=== PATIENT | male | born 1980 | race Caucasian/White ===

== ENCOUNTER 2016-08-27 16:11 | Emergency (ER) | payer OTHER ==
[~2016-08-27] VITALS: Ht 175.3 cm; Wt 77.1 kg
[2016-08-27] MEDS ORDERED: ADV100INH INH (16:33)
[2016-08-27] MEDS ORDERED: MONT10TA2 PO (16:33)
[2016-08-27] MEDS ORDERED: ALBU17IN INH (16:33)
[2016-08-27] MEDS ORDERED: ADDE30CA PO (16:33)
[2016-08-27] MEDS ORDERED: NORCO, ANEXSIA 5/325MG TABLET (HYDROcodone/ACETAMINOPHEN) PO ONE (17:15)
--- NOTE | 2016-08-27 17:39 | REP ---
Left ankle series: Four views: History: Trauma. Findings: There is mild Achilles calcaneal spurring noted on lateral radiograph. Ankle mortise is intact. No fracture is seen. Some medial and anterior soft tissue swelling is seen. Impression: Soft-tissue swelling. No fracture noted. Signed by Calvin Mendenhall MD 08/27/2016 07:36 P
--- NOTE | 2016-08-27 18:02 | REP ---
Right knee series: Five views. History: Trauma. Findings: Five views of the right knee demonstrate clothing artifact over the distal thigh. Bones, joints, and soft tissues are otherwise radiographically intact. Impression: Clothing artifact. Otherwise negative left knee series. Signed by Calvin Mendenhall MD 08/27/2016 07:37 P
[2016-08-27 18:34] VITALS: BP 139/63
[2016-08-27] MEDS ORDERED: NAPR500T PO (18:35)
== END 2016-08-27 18:48 | disposition home or self-care (01) ==
LOC: M ED 17:42
DX: S93.402A Sprain of unspecified ligament of left ankle, initial encounter (principal); S83.92XA Sprain of unspecified site of left knee, initial encounter; X58.XXXA Exposure to other specified factors, initial encounter; Y92.410 Unspecified street and highway as the place of occurrence of the external cause; Y93.9 Activity, unspecified; Y99.9 Unspecified external cause status; F90.9 Attention-deficit hyperactivity disorder, unspecified type; J45.909 Unspecified asthma, uncomplicated; F17.200 Nicotine dependence, unspecified, uncomplicated; Z79.899 Other long term (current) drug therapy; Z88.0 Allergy status to penicillin; Z91.013 Allergy to seafood

== ENCOUNTER → 2016-08-31 | Outpatient (CLI) | payer OTHER ==
[~2016-08-31] MED LIST: ADDE30CA PO; ADV100INH INH; ALBU17IN INH; MONT10TA2 PO; NAPR500T PO
--- NOTE | 2016-08-31 09:34 | REP ---
MR LEFT FOOT: TECHNIQUE: Axial, sagittal, and coronal images using T1 and T2 weighting. No IV contrast was administered. Visualized osseous structures of the foot demonstrate normal marrow signal with no bone marrow edema or occult fracture. There is diffuse subcutaneous soft tissue edema primarily involving the dorsum of the foot. Mild fluid is seen surrounding a portion of the flexor hallucis longus and posterior tibial tendons in the midfoot hindfoot region possibly indicating mild tenosynovitis. Otherwise the flexor and extensor tendons appear intact. There is a normal amount of joint fluid in the joints of the foot. No other soft tissue abnormalities are seen. IMPRESSION: Mild fluid surrounding the flexor hallucis longus and posterior tibial tendons in the mid to hindfoot region possibly indicating mild tenosynovitis. Otherwise flexor and extensor tendons appear intact. No occult fracture in the foot. Subcutaneous soft tissue edema primarily in the dorsum of the foot. Signed by Brendon Garcia MD 08/31/2016 03:22 P
--- NOTE | 2016-08-31 09:40 | REP ---
MRI LEFT ANKLE: TECHNIQUE: Sagittal proton density, STIR, axial proton density fat sat, T1, coronal proton density, STIR. The Achilles, anterior tibial, posterior tibial, flexor hallucis longus, flexor digitorum longus, and peroneal tendons are all intact. There is fluid surrounding a portion of the posterior tibial tendon distally below the level of the ankle joint and also the flexor hallucis longus tendon suggesting mild tenosynovitis. There is increased signal in the anterior inferior tibiofibular ligament compatible with a tear. The anterior and posterior talofibular, calcaneofibular and deltoid ligaments appear intact. Plantar fascia demonstrates no abnormal signal with no evidence of plantar fasciitis. The plantar tendon is intact. Small joint effusion is seen at the tibiotalar joint. There is diffuse subcutaneous soft tissue edema. There is increased signal on T2 weighted images in the posterior aspect of the distal end of the tibia compatible with a bone bruise. Ankle mortise is anatomic. There appears to be a tiny cartilaginous defect in the lateral talar dome about 1 mm in depth and about 2 mm in width. IMPRESSION: There appears to be a tear of the anterior inferior tibiofibular ligament, consistent with an anterior ankle syndesmotic injury or high ankle sprain. Small bone bruise posterior distal tibia. Mild fluid surrounding the flexor hallucis longus and posterior tibial tendons distally suggesting mild tenosynovitis. Tiny cartilaginous defect lateral talar dome about 1 mm in depth and 2 mm in width. Signed by Brendon Garcia MD 08/31/2016 03:25 P
== END ==
LOC: M RAD 06:43
PROVIDERS: ATTEND Physician Assistant
DX: S93.402D Sprain of unspecified ligament of left ankle, subsequent encounter (principal); X58.XXXD Exposure to other specified factors, subsequent encounter; Y99.8 Other external cause status

== ENCOUNTER 2018-04-19 17:51 | Emergency (ER) | payer OTHER | END 2018-04-19 19:00 | disposition home or self-care (01) | LOC: M ED 17:51 | DX: S93.401A Sprain of unspecified ligament of right ankle, initial encounter (principal); W01.0XXA Fall on same level from slipping, tripping and stumbling without subsequent striking against object, initial encounter; X50.1XXA Overexertion from prolonged static or awkward postures, initial encounter; Y92.89 Other specified places as the place of occurrence of the external cause; J45.909 Unspecified asthma, uncomplicated; F90.9 Attention-deficit hyperactivity disorder, unspecified type; Z88.0 Allergy status to penicillin; Z91.013 Allergy to seafood; F17.210 Nicotine dependence, cigarettes, uncomplicated; Z79.899 Other long term (current) drug therapy | CPT/HCPCS: 73610 ==

== ENCOUNTER 2018-08-09 07:38 | Inpatient (IN) | payer OTHER ==
[~2018-08-09] VITALS: Ht 172.7 cm; Wt 90.4 kg
[2018-08-09] VITALS (8 sets, daily range): BP systolic 132; BP diastolic 75; O2SAT 92–96
[~2018-08-09 07:38] MED LIST changes: -ADDE30CA PO; +ADDE30CA3 PO; +NAPR-50 PO; -NAPR500T PO
[2018-08-09] MEDS ORDERED: PROAAER10 (07:46)
[2018-08-09] MEDS ORDERED: CETI10TA (07:46)
[2018-08-09] MEDS ORDERED: ADV250INH (07:46)
[2018-08-09] MEDS ORDERED: EPINEPHrine INJ 1 MG/ML 1ML AMP IM STA ×2 (07:58→09:53)
[2018-08-09] MEDS ORDERED: FAMOTIDINE IV BAG 20 MG in APPROPRIATE DILUENT 1 EA IV ONE (08:00)
[2018-08-09] MEDS ORDERED: methylPREDNISolone INJ 125 MG/2 ML VIAL (J2930) IV ONE (08:00)
[2018-08-09] MEDS ORDERED: diphenhydrAMINE INJ 50MG/ML VIAL (J1200) IV ONE (08:00)
[2018-08-09] MEDS ORDERED: EPIN0.3I11 (08:32)
[2018-08-09] MEDS: SENOKOT S TAB PO SCH ×2 (09:00→22:25)
[2018-08-09] MEDS ORDERED: FAMOTIDINE 20 MG TAB PO SCH (09:00)
[2018-08-09] MEDS: HEPARIN SOD (PORCINE) 5000 UNITS/ML VIAL SC SCH ×2 (09:00→22:23)
[2018-08-09 10:11] LABS: HEMOGLOBIN 16.7 g/dl (13.5-17.5); MEAN CORPUSCULAR HEMOGLOBIN 30.5 pg (27.0-33.0); MEAN CORPUSCULAR HGB CONC 33.4 g/dl (32.0-36.5); MEAN CORPUSCULAR VOLUME 91.2 fl (80.0-96.0); PLATELET COUNT, AUTOMATED 237 10^3/uL (150-450); RED BLOOD COUNT 5.48 10^6/uL (4.30-6.10); WHITE BLOOD COUNT 10.5 10^3/uL (4.0-10.0)
[2018-08-09 10:32] LABS: BLOOD UREA NITROGEN 14 MG/DL (7-18); CALCIUM LEVEL 8.5 MG/DL (8.5-10.1); CARBON DIOXIDE LEVEL 28 MEQ/L (21-32); CHLORIDE LEVEL 106 MEQ/L (98-107); CREATININE FOR GFR 0.98 MG/DL (0.70-1.30); GLOMERULAR FILTRATION RATE > 60.0 (>60); GLUCOSE, FASTING 95 MG/DL (70-100); POTASSIUM SERUM 3.5 MEQ/L (3.5-5.1); SODIUM LEVEL 141 MEQ/L (136-145)
--- NOTE | 2018-08-09 10:44 | REP ---
CHEST, TWO VIEWS: There is no evidence of acute infiltrate. No pleural effusion is seen. The heart is normal in size. The mediastinal silhouette is unremarkable. The visualized osseous structures are intact. IMPRESSION: No acute pulmonary disease. Electronically Signed by Brendon Garcia MD 08/09/2018 06:54 P
[2018-08-09 10:59] LABS: ABG BASE EXCESS -1.4 (-2.0-2.0); ABG O2 SATURATION 97.3 % (95.0-99.0); ABG PARTIAL PRESSURE CO2 33.9 mmHg (35.0-45.0); ABG PARTIAL PRESSURE O2 90.4 mmHg (75.0-100.0); ABG STANDARD HCO3 23.3 MEQ/L (22.0-26.0); ABG TOTAL CO2 23.1 MEQ/L (22.0-29.0); ABG pH (ARTERIAL) 7.431 UNITS (7.350-7.450)
[2018-08-09 11:34] LABS: OSMOLALITY SERUM 297 MOSM/KG (275-295)
[2018-08-09 11:38] LABS: BASO % 0.1 % (0.0-1.0); EOS # 0.1 10^3/uL (0.0-0.50); EOS % 0.9 % (0.0-3.0); LYMPH # 2.2 10^3/uL (1.5-4.5); MONO # 0.3 10^3/uL (0.0-0.8); MONO % 2.5 % (0.0-5.0); NEUTROPHILS # 8.2 10^3/uL (1.8-7.7); NEUTROPHILS % 76.1 % (36.0-66.0)
[2018-08-09] MEDS ORDERED: ISOVUE-370 76% 125ML VIAL (Q9967 PER ML) As Ordered ONE (11:51)
[2018-08-09 11:58] LABS: C REACTIVE PROTEIN QUANTITATIV 6.26 MG/DL (0.00-0.30); CK-MB VALUE MASS < 1.0 NG/ML (<3.6); CPK CREATINE PHOSPHOKINASE 89 U/L (39-308); MB/CK RELATIVE INDEX 1.12 (< OR =4); TROPONIN I < 0.02 NG/ML (< 0.10)
[2018-08-09] MEDS ORDERED: LR 1,000 ML IV ONE (12:00)
[2018-08-09] MEDS ORDERED: HEPARIN SOD (PORCINE) 5000 UNITS/ML VIAL SC SCH (12:00)
[2018-08-09] MEDS ORDERED: IPRATROPIUM 0.5MG/ALBUTEROL 2.5MG INH SOL UD 3ML (DUONEB)(J7620) NEB PRN (12:00)
[2018-08-09] MEDS ORDERED: ONDANSETRON 4MG/2ML VIAL (J2405) IV PRN (12:00)
[2018-08-09] MEDS ORDERED: ACETAMINOPHEN TAB 650MG DOSE (2X325MG) PO PRN (12:00)
[2018-08-09] MEDS ORDERED: POTASSIUM CHLORIDE 10 MEQ SR TABLET PO ONE (12:15)
[2018-08-09] MEDS ORDERED: VIAG100T PO (12:30)
[2018-08-09] MEDS ORDERED: ADV250INH INH (12:30)
[2018-08-09] MEDS ORDERED: ADDE20CA3 PO (12:30)
[2018-08-09] MEDS ORDERED: MONT10TA2 PO (12:30)
[2018-08-09] MEDS ORDERED: EPIP0.3I2 IM (12:30)
[2018-08-09] MEDS ORDERED: CETI10TA PO (12:30)
[2018-08-09] MEDS ORDERED: PROAAER10 INH (12:30)
--- NOTE | 2018-08-09 12:47 | REP ---
CT SOFT TISSUES NECK WITH IV CONTRAST: CT soft tissue of the neck were performed following the intravenous administration of 100 mL of Isovue-370. Sagittal and coronal reconstruction images are performed. Airway is widely patent with no narrowing. Epiglottis is normal in size as are the palatine tonsils. No narrowing of any portion of the airway is seen. There is no adenopathy or fluid collection. There is no retropharyngeal soft tissue swelling or edema. Thyroid, parotid and submandibular glands are unremarkable. There is mild mucosal thickening in the left maxillary sinus. IMPRESSION: Mild mucosal thickening left maxillary sinus. Otherwise negative CT of the soft tissues of the neck. Electronically Signed by Brendon Garcia MD 08/09/2018 07:01 P
[2018-08-09 12:48] LABS: AMPHETAMINES LEVEL URINE NEGATIVE (NEGATIVE); BARBITURATES URINE NEGATIVE (NEGATIVE); BENZODIAZEPINES URINE NEGATIVE (NEGATIVE); CANNABINOIDS URINE NEGATIVE (NEGATIVE); COCAINE METABOLITE URINE NEGATIVE (NEGATIVE); METHADONE URINE NEGATIVE (NEGATIVE); OPIATES URINE NEGATIVE (NEGATIVE); PHENCYCLIDINE URINE NEGATIVE (NEGATIVE)
--- NOTE | 2018-08-09 12:48 | REP ---
CT CHEST WITH IV CONTRAST: TECHNIQUE: Axial contrast enhanced images from the thoracic inlet to the upper abdomen using 100 mL Isovue 370 intravenous contrast material with multiplanar reformations. There are mild dependant atelectatic changes in both lung bases. The lungs are otherwise clear. There is no evidence of mediastinal, hilar, or chest wall lymphadenopathy. There is no pleural or pericardial effusion. Heart is normal in size. There is no thoracic aortic aneurysm or dissection. The visualized upper abdominal structures are unremarkable. IMPRESSION: Mild bibasilar dependant atelectatic changes without other significant finding. Electronically Signed by Brendon Garcia MD 08/09/2018 07:01 P
[2018-08-09] MEDS ORDERED: CLINDAMYCIN 600 MG in APPROPRIATE DILUENT 1 EA IV SCH (13:15)
[2018-08-09] MEDS: IPRATROPIUM 0.5MG/ALBUTEROL 2.5MG INH SOL UD 3ML (DUONEB)(J7620) NEB SCH ×3 (14:00→20:44)
[2018-08-09] MEDS: CLINDAMYCIN 600 MG in APPROPRIATE DILUENT 1 EA IV SCH ×3 (14:15→22:28)
[2018-08-09] MEDS: LACTOBACILLUS ACIDOPHILUS CAP (BACID) PO SCH ×3 (15:35→22:27)
--- NOTE | 2018-08-09 16:38 | HPE ---
DATE OF ADMISSION: 08/09/2018 PRIMARY CARE PROVIDER: [facility] CHIEF COMPLAINT: Throat swelling, shortness of breath. HISTORY OF PRESENT ILLNESS: This is a 38-year-old male patient with underlying medical history of allergies, attention deficit hyperactivity disorder, recently being treated for urticaria with Zyrtec for the past 2 months that is not getting better, presented to the hospital with acute worsening of shortness of breath, facial swelling, lip swelling since this morning. Patient was seen in the emergency room, given epinephrine without much improvement. Denies any new medications. Denies taking new food. Is allergic to penicillin and shellfish at baseline but denies any exposure for years. Reported feverish and chills at home yesterday. Otherwise no sick contact. No history of IV drug use. Denies any chest pain, pressure, or discomfort. Able to speak in full sentences. Reported similar reaction about 10 years ago. ALLERGIES: PENICILLIN and shellfish. PAST MEDICAL HISTORY: Attention deficit hyperactivity disorder (ADHD), asthma. PAST SURGICAL HISTORY: Tonsillectomy and adenoidectomy. SOCIAL HISTORY: Smoker a quarter pack a day. Drinking alcoholic beverages, beer, once a month. No other drug use. Active duty . FAMILY HISTORY: Noncontributory. REVIEW OF SYSTEMS: Reported urticaria that is itching. Reported lip swelling, facial swelling, neck swelling, shortness of breath. Subjective feeling of fevers and chills. All other review of systems are negative. HOME MEDICATIONS: - ProAir inhalation every 4 hours as needed - Adderall XL 40 mg by mouth daily - Zyrtec 10 mg by mouth nightly - EpiPen intramuscular (IM) as needed - montelukast 10 mg by mouth nightly - Advair Diskus 250/50 mcg inhalation twice a day - Viagra 100 mg by mouth as directed as needed PHYSICAL EXAMINATION: VITAL SIGNS: Temperature 97.9, pulse 115, respirations 19, blood pressure 142/84, pulse oximetry 98% on room air. GENERAL: Patient alert, comfortable. HEENT: Mild facial swelling, lip swelling. PULMONARY: Bilateral clear. CARDIAC: Regular, S1, S2. ABDOMEN: Soft, nontender. EXTREMITIES: No clubbing, cyanosis, or edema. SKIN: Shows diffuse urticaria sparing the patient's face but is also more on patient's truncal area but extends down to the feet and to the hands, not raised, no skin breakage. LABORATORY DATA: WBC 10.5, hemoglobin and hematocrit 16.7/50, platelets 237. Chemistry: Sodium 141, potassium 3.5, chloride 106, bicarbonate 28, BUN 14, creatinine 0.98. Cardiac enzymes negative times one. C-reactive protein 6.23. IgE 204. Respiratory panel negative. ASSESSMENT AND PLAN: This is a 38-year-old male patient with underlying medical history of asthma, smoker, with also underlying medical history of shellfish allergy and penicillin allergy, attention deficit hyperactivity disorder (ADHD), presented with angioedema and urticaria. 1. Angioedema and urticaria. Possible allergic reaction versus pharyngitis, viral infection. CT of the neck and chest appreciated. Given epinephrine, Solu-Medrol, Benadryl, and Pepcid. Patient currently does not have any respiratory compromise. Speaks in full sentences. Saturating well. Imaging is appreciated. Case discussed with ear, nose, and throat (ENT), Dr. Toñito Curran, who does not believe, given the relatively normal CT of the neck, there is any intervention from ENT perspective. As per Dr. Curran, recommend starting antibiotics and steroid. As per Dr. Curran, patient started on clindamycin and prednisone 40 mg by mouth daily taper as needed. Will monitor overnight. Respiratory panel has been negative. Streptococcus screen has been negative. Blood culture has been sent. Will monitor closely. 2. Atelectasis. Incentive spirometry. 3. History of asthma. Patient currently does not have any wheeze. Continue home medication. 4. Attention deficit hyperactivity disorder (ADHD). Continue home medication. 5. Deep venous thrombosis (DVT) prophylaxis. Heparin subcutaneous. DISPOSITION: Pending clinical improvement. Likely discharge in the next 24-48 hours. Case discussed with ENT, Dr. Toñito Curran, who stated there is no acute surgical intervention at this time, recommend monitoring closely.
[2018-08-09] MEDS: SODIUM CHLORIDE NASAL 0.65% SPRAY BTL (OCEAN) SCH ×2 (17:01→21:00)
[2018-08-09 17:25] LABS: CK-MB VALUE MASS < 1.0 NG/ML (<3.6); CPK CREATINE PHOSPHOKINASE 67 U/L (39-308); MB/CK RELATIVE INDEX 1.49 (< OR =4); TROPONIN I < 0.02 NG/ML (< 0.10)
[2018-08-09] MEDS ORDERED: EPINEPHrine INJ 1 MG/ML 1ML AMP IM PRN (20:15)
[2018-08-09] MEDS ORDERED: NICOTINE 7 MG/24 HR TRANSDERMAL TD PRN (20:15)
[2018-08-09] MEDS: ADVAIR HFA 115/21MCG INHALER INH SCH (20:44)
[2018-08-09] MEDS ORDERED: MONTELUKAST 10 MG TAB PO SCH (21:00)
[2018-08-09] MEDS ORDERED: CETIRIZINE (ZyrTEC) 10 MG TAB PO SCH (21:00)
[2018-08-09] MEDS: FLUTICASONE PROP 0.05% NASAL SPRAY 16 GM (FLONASE) NARES SCH (21:00)
[2018-08-09] MEDS: FAMOTIDINE 20 MG TAB PO SCH (22:24)
[2018-08-09] MEDS: diphenhydrAMINE INJ 50MG/ML VIAL (J1200) IV PRN (22:39)
[2018-08-10] VITALS (9 sets, daily range): BP systolic 124–137; BP diastolic 63–75; O2SAT 93–96
[2018-08-10] MEDS: IPRATROPIUM 0.5MG/ALBUTEROL 2.5MG INH SOL UD 3ML (DUONEB)(J7620) NEB SCH ×2 (02:00→07:53)
[2018-08-10] MEDS: diphenhydrAMINE INJ 50MG/ML VIAL (J1200) IV PRN (05:39)
[2018-08-10] MEDS: CLINDAMYCIN 600 MG in APPROPRIATE DILUENT 1 EA IV SCH (06:03)
[2018-08-10 06:15] LABS: BASO % 0.1 % (0.0-1.0); HEMATOCRIT 38.8 % (42.0-52.0); LYMPH # 1.1 10^3/uL (1.5-4.5); MEAN CORPUSCULAR HEMOGLOBIN 29.9 pg (27.0-33.0); MEAN CORPUSCULAR VOLUME 87.8 fl (80.0-96.0); MONO # 0.5 10^3/uL (0.0-0.8); MONO % 3.1 % (0.0-5.0); NEUTROPHILS # 14.2 10^3/uL (1.8-7.7); NEUTROPHILS % 89.2 % (36.0-66.0); PLATELET COUNT, AUTOMATED 223 10^3/uL (150-450); RED BLOOD COUNT 4.42 10^6/uL (4.30-6.10); WHITE BLOOD COUNT 15.9 10^3/uL (4.0-10.0)
[2018-08-10 06:28] LABS: HEMOGLOBIN 13.2 g/dl (13.5-17.5)
[2018-08-10 06:30] LABS: BLOOD UREA NITROGEN 17 MG/DL (7-18); CALCIUM LEVEL 8.6 MG/DL (8.5-10.1); CARBON DIOXIDE LEVEL 24 MEQ/L (21-32); CHLORIDE LEVEL 110 MEQ/L (98-107); CREATININE FOR GFR 0.85 MG/DL (0.70-1.30); GLOMERULAR FILTRATION RATE > 60.0 (>60); GLUCOSE, FASTING 142 MG/DL (70-100); MAGNESIUM LEVEL 2.3 MG/DL (1.8-2.4); POTASSIUM SERUM 4.2 MEQ/L (3.5-5.1); SODIUM LEVEL 142 MEQ/L (136-145)
[2018-08-10] MEDS: ADVAIR HFA 115/21MCG INHALER INH SCH (07:52)
[2018-08-10 08:12] LABS: C REACTIVE PROTEIN QUANTITATIV 5.56 MG/DL (0.00-0.30)
[2018-08-10] MEDS: FAMOTIDINE 20 MG TAB PO SCH (08:46)
[2018-08-10] MEDS: SENOKOT S TAB PO SCH (08:46)
[2018-08-10] MEDS: LACTOBACILLUS ACIDOPHILUS CAP (BACID) PO SCH (08:47)
[2018-08-10] MEDS: FLUTICASONE PROP 0.05% NASAL SPRAY 16 GM (FLONASE) NARES SCH (08:48)
[2018-08-10] MEDS: HEPARIN SOD (PORCINE) 5000 UNITS/ML VIAL SC SCH (08:48)
[2018-08-10] MEDS: SODIUM CHLORIDE NASAL 0.65% SPRAY BTL (OCEAN) SCH (08:48)
[2018-08-10] MEDS ORDERED: predniSONE 20 MG TAB PO SCH (09:00)
[2018-08-10] MEDS ORDERED: AMPHETAMINE/DEXTROAMPHETAMINE 5 MG *ER* CAPSULE (ADDERALL XR) PO SCH (09:00)
[2018-08-10] MEDS ORDERED: CLEO300C2 PO (10:30)
[2018-08-10] MEDS ORDERED: PRED10TA2 PO (10:30)
--- NOTE | 2018-08-10 13:37 | ECGEPIP ---
Stationary ECG Study [facility] Test Date: 2018-08-09 Pat Name: DAV EUCEDA Department: Room: [facility] Gender: M Audio Installer: LISSETH : 1980 Requested By: ELMER COMBS Order Number: [id number] Reading MD: Willy Burks Measurements Intervals [place] Rate: 83 P: 11 [place]: 121 QRS: 41 QRSD: 86 T: 44 QT: 356 QTc: 419 Interpretive Statements SINUS RHYTHM Poor R wave progression. No prior ECG available for comparison at the time of interpretation. Electronically Signed On 08-10-2018 13:36:49 EDT by Willy Burks
--- NOTE | 2018-08-10 16:46 | DSES ---
DATE OF ADMISSION: 08/09/2018 DATE OF DISCHARGE: 08/10/2018 FINAL DIAGNOSES: Facial and lip swelling, possibly secondary to angioedema, urticaria, possible early pharyngitis, atelectasis, history of asthma, attention deficit hyperactivity disorder. PRIMARY CARE PROVIDER: [facility] EAR, NOSE, AND THROAT (ENT) PROVIDER: Toñito Curran MD HISTORY OF PRESENT ILLNESS: This is a 38-year-old male patient with underlying medical history of allergies, attention deficit hyperactivity disorder, recently being treated for urticaria with Zyrtec for the past 1-2 months, not getting much better, presented to the hospital with acute worsening of shortness of breath, facial swelling, lip swelling since the morning of admission. Patient was seen in the emergency room, given epinephrine twice without much improvement. Denies any new medication. Denies taking any abnormal food. Has allergy to penicillin and shellfish without exposure to either. Reported fevers and chills subjective at home. Denies any sick contact. No history of IV drug use. Denies any chest pain, pressure, or discomfort. Speaks in full sentences. Reported similar reaction 10 years ago. HOSPITAL COURSE: Patient admitted to the hospital. Given Solu-Medrol in the emergency department (ED) with Benadryl and Pepcid. Patient was placed on prednisone. CT of the neck and CT of the chest was done, incentive spirometry. Case was discussed with ENT provider, Dr. Toñito Curran, who after reviewing radiological image does not believe patient has any evidence of airway compromise. Subsequently recommend continued prednisone taper. Continued Zyrtec and started clindamycin for possible pharyngitis given elevated C-reactive protein. Patient's IgE was elevated. Patient was monitored overnight. Swelling mildly improved but slightly worsened this morning, but still better than yesterday. Urticaria on the patient's trunk, back, leg, and arm has mostly resolved. Currently, patient is in no respiratory distress, comfortable, ready to be discharged with further care as outpatient. VITAL SIGNS: Temperature 98.1, pulse 78, respirations 18, blood pressure 130/75, pulse oximetry 95% on room air. GENERAL: Patient alert, comfortable, in no acute distress. Minimal facial swelling, atraumatic. Airway intact. Neck swelling has resolved as well. PULMONARY: Bilateral clear. CARDIAC: Regular, S1, S2. ABDOMEN: Soft, nontender, positive bowel sounds. EXTREMITIES: No clubbing, cyanosis, or edema. SKIN: Diffuse urticaria has mostly resolved, only with minimal spots. LABORATORY DATA: WBC 15.9, hemoglobin and hematocrit 13.2/38.8, platelets 223. Chemistry: Sodium 142, potassium 4.2, chloride 110, bicarbonate 24, BUN 17, creatinine 0.85, C-reactive protein 5.56. DISCHARGE MEDICATIONS: - clindamycin 300 mg by mouth three times a day for 5 more days - prednisone taper 40 mg by mouth daily for 2 days, 30 mg by mouth daily for 2 days, 20 mg by mouth daily for 2 days, then 10 mg by mouth daily for 2 days, then stop Continue: - ProAir inhalation every 4 hours as needed - Adderall XR 40 mg by mouth daily - Zyrtec 10 mg by mouth nightly - EpiPen intramuscular (IM) as needed - montelukast 10 mg by mouth nightly - Advair Diskus 250/50 mcg inhalation twice a day - Viagra 100 mg by mouth as needed DISCHARGE INSTRUCTIONS: [place] 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 Please see product development specialist as per primary care provider in the next 1-2 weeks. Return if symptoms worsen. Smoking cessation.
== END 2018-08-10 10:56 | disposition home or self-care (01) | DRG 916 ==
LOC: M ED 07:38 → M ED INP 11:49 → M PCU 19:50
PROVIDERS: ADMIT Hospitalist; ATTEND Hospitalist
DX: T78.3XXA Angioneurotic edema, initial encounter (principal); J98.11 Atelectasis; J02.9 Acute pharyngitis, unspecified; J45.909 Unspecified asthma, uncomplicated; F90.9 Attention-deficit hyperactivity disorder, unspecified type; Z88.0 Allergy status to penicillin; Z91.013 Allergy to seafood; F17.200 Nicotine dependence, unspecified, uncomplicated

== ENCOUNTER → 2018-08-12 | Outpatient (CLI) | payer OTHER ==
[~2018-08-12] MED LIST changes: +ADDE20CA3 PO; +ADV250INH; +ADV250INH INH; +CETI10TA; +CETI10TA PO; +CLEO300C2 PO; +EPIN0.3I11; +EPIP0.3I2 IM; +PRED10TA2 PO; +PROAAER10; +PROAAER10 INH; +VIAG100T PO
[2018-08-14 14:21] LABS: ANTINUCLEAR ANTIBODIES DIRECT Negative (Negative); SJOGREN'S ANTI SS-A <0.2 AI (0.0-0.9); SJOGREN'S ANTI SS-B <0.2 AI (0.0-0.9)
== END ==
LOC: M LAB 16:01
PROVIDERS: ATTEND Nurse Practitioner Family
DX: L50.1 Idiopathic urticaria (principal)

== ENCOUNTER → 2018-08-18 | Outpatient (CLI) | payer OTHER ==
[~2018-08-18] MED LIST changes: -NAPR-50 PO; +NAPR-837 PO
[2018-08-18 19:14] LABS: BASO % 0.2 % (0.0-1.0); HEMATOCRIT 51.2 % (42.0-52.0); LYMPH # 1.7 10^3/uL (1.5-4.5); LYMPH % 10.7 % (24.0-44.0); MEAN CORPUSCULAR HEMOGLOBIN 29.9 pg (27.0-33.0); MEAN CORPUSCULAR HGB CONC 33.2 g/dl (32.0-36.5); MONO # 0.4 10^3/uL (0.0-0.8); MONO % 2.5 % (0.0-5.0); NEUTROPHILS # 13.9 10^3/uL (1.8-7.7); NEUTROPHILS % 85.9 % (36.0-66.0); PLATELET COUNT, AUTOMATED 263 10^3/uL (150-450); RED BLOOD COUNT 5.69 10^6/uL (4.30-6.10); WHITE BLOOD COUNT 16.1 10^3/uL (4.0-10.0)
[2018-08-18 19:35] LABS: COMPLEMENT C3 120 MG/DL (90-180); COMPLEMENT C4 20 MG/DL (10-40); RHEUMATOID FACTOR QUANT < 10.0 IU/ML (<15.0); THYROID STIMULATING HORMONE 0.415 uIU/ML (0.358-3.740); THYROXINE (T4) 8.4 UG/DL (4.5-12.0)
[2018-08-18 19:38] LABS: THYROID PEROXIDASE ANTIBODY < 28.0 U/ML (<60.0)
[2018-08-18 19:40] LABS: THYROGLOBULIN ANTIBODY < 15.0 U/ML (<60.0); TOTAL T3 87.7 NG/DL (60.0-181.0)
[2018-08-18 19:48] LABS: ERYTHROCYTE SEDIMENTATION RATE 1 mm/hr (0-15)
[2018-08-20 14:25] LABS: ANTINUCLEAR ANTIBODIES DIRECT Negative (Negative)
[2018-08-26 00:07] LABS: COMPLEMENT TOTAL (CH50) 59 U/mL (>41); IGE RECEPTOR ABY 1 35.8 (<10)
== END ==
LOC: M SMT 11:09
PROVIDERS: ATTEND Allergy & Immunology Allergy
DX: L50.1 Idiopathic urticaria (principal)